=== PATIENT | female | born 1985 | race Native Hawaiian/Other Pacific Islander ===

== ENCOUNTER 2016-11-18 10:58 | Emergency (ER) | payer OTHER ==
[~2016-11-18] VITALS: Ht 162.6 cm; Wt 122.5 kg
[~2016-11-18 10:58] MED LIST: FLUT0.05 NAS; LEVO500T PO; ZITHROMAX500 MG OR
[2016-11-18 11:09] VITALS: BP 131/95; TEMP 98.1
== END 2016-11-18 12:30 | disposition home or self-care (01) ==
LOC: ED 10:58
DX: M54.2 Cervicalgia (principal); M25.511 Pain in right shoulder
CPT/HCPCS: 99281

== ENCOUNTER 2018-12-27 19:57 | Emergency (ER) | payer BC ==
[~2018-12-27] VITALS: Ht 165.1 cm; Wt 104.3 kg
[~2018-12-27 19:57] MED LIST changes: +MACROBID100 MG OR
[2018-12-27 20:50] VITALS: BP 152/102; TEMP 98.2
== END 2018-12-27 20:50 | disposition home or self-care (01) ==
LOC: ED 19:57
DX: L03.211 Cellulitis of face (principal)
CPT/HCPCS: 96372; 99283; J1200; J2930

== ENCOUNTER 2020-08-10 09:55 | Outpatient (CLI) | payer BC | END 2020-08-10 19:33 | disposition home or self-care (01) | LOC: RAD 09:55 | PROVIDERS: ATTEND Nurse Practitioner Family | DX: M79.671 Pain in right foot (principal) ==

== ENCOUNTER → 2020-12-31 | Outpatient (CLI) | payer BC | LOC: RAD 09:12 | PROVIDERS: ATTEND Nurse Practitioner Family | DX: M79.671 Pain in right foot (principal) ==

== ENCOUNTER 2021-02-28 06:58 | Outpatient (CLI) | payer BC ==
[2021-02-28 07:32] LABS: PLATELET COUNT 290 K/uL (152-353)
[2021-02-28 08:18] LABS: POTASSIUM 3.7 mmol/L (3.6-5.2)
== END 2021-02-28 20:02 | disposition home or self-care (01) ==
LOC: LABW 06:58
PROVIDERS: ATTEND Nurse Practitioner Family
DX: E66.9 Obesity, unspecified (principal); E66.01 Morbid (severe) obesity due to excess calories; R53.83 Other fatigue; R53.81 Other malaise; Z79.899 Other long term (current) drug therapy; M10.071 Idiopathic gout, right ankle and foot
CPT/HCPCS: 36415; 80053; 80061; 82306; 82607; 83036; 84439; 84443; 84550; 85027

== ENCOUNTER 2022-04-01 15:38 | Emergency (ER) | payer BC ==
[~2022-04-01] VITALS: Ht 165.1 cm; Wt 122.5 kg
[2022-04-01 15:39] VITALS: TEMP 98.9
[2022-04-01 18:48] VITALS: BP 152/86
== END 2022-04-01 18:48 | disposition home or self-care (01) ==
LOC: ED 15:38
PROC: 0HQ1XZZ Repair Face Skin, External Approach (ICD-10-PCS; principal; 2022-04-01)
DX: S01.81XA Laceration without foreign body of other part of head, initial encounter (principal); S01.412A Laceration without foreign body of left cheek and temporomandibular area, initial encounter; W54.0XXA Bitten by dog, initial encounter; Y92.89 Other specified places as the place of occurrence of the external cause
CPT/HCPCS: 81025; 90471; 90715; 99283; J2001

== ENCOUNTER 2023-01-06 14:21 | Emergency (ER) | payer BC ==
[~2023-01-06] VITALS: Ht 162.6 cm; Wt 158.8 kg
[2023-01-06 14:50] VITALS: BP 148/80; TEMP 98.5
== END 2023-01-06 16:33 | disposition still patient (30) ==
LOC: ED 14:21
DX: S50.02XA Contusion of left elbow, initial encounter (principal); S53.402A Unspecified sprain of left elbow, initial encounter; W19.XXXA Unspecified fall, initial encounter
CPT/HCPCS: 81025; 99283

== ENCOUNTER → 2023-02-18 | Outpatient (CLI) | payer BC | LOC: RAD 20:38 | PROVIDERS: ATTEND Physician Assistant | DX: J01.10 Acute frontal sinusitis, unspecified (principal) ==